=== PATIENT | female | born 1950 | race Caucasian/White ===

== ENCOUNTER 2023-03-29 08:36 | Emergency (ER) | payer OTHER ==
[~2023-03-29] VITALS: Ht 167.6 cm; Wt 91.0 kg
[~2023-03-29 08:36] MED LIST: ATEN50TA19 PO; ATOR20TA PO; CLOP75TA70 PO
[2023-03-29] MEDS ORDERED: EPINEPHrine HCL 0.5 ML NEB ONE (08:39)
[2023-03-29] MEDS ORDERED: DexAMETHasone SOD PHOS 10MG/1ML VIAL INJ ONE (08:39)
[2023-03-29] MEDS ORDERED: IPRATROPIUM BROM 0.5 MG/2.5ML INH SOL NEB ONE (08:45)
[2023-03-29] MEDS ORDERED: DexAMETHasone SOD PHOS 10MG/1ML VIAL INJ IV ONE (08:45)
[2023-03-29] MEDS ORDERED: ALBUTEROL SULF 2.5 MG/0.5ML(0.5%) NEB SOLN NEB ONE (08:45)
[2023-03-29] MEDS ORDERED: EPINEPHrine HCL 0.5 ML NEB NEB ONE (08:45)
[2023-03-29 09:00] LABS: Basophils # (auto) 0.1 10 ^3/uL (0-0.2); Eosinophils # (auto) 0.1 10 ^3/uL (0-0.8); Eosinophils % (auto) 0.4 % (0.0-7.0); Hematocrit 44.9 % (36.0-46.0); Hemoglobin 14.9 g/dL (12.2-16.2); Lymphocytes # (auto) 4.6 10 ^3/uL (0.4-5.4); Lymphocytes % (auto) 38.5 % (10.0-50.0); Mean Corpuscular Hemoglobin 30.4 pg (28.0-32.0); Mean Corpuscular Hgb Conc. 33.1 g/dL (32.0-36.0); Mean Corpuscular Volume 91.8 fL (80.0-100.0); Monocytes # (auto) 0.6 10 ^3/uL (0-1.3); Monocytes % (auto) 5.1 % (0.0-12.0); Neutrophils # (auto) 6.6 10 ^3/uL (1.6-8.6); Nucleated Red Blood Cells % 0.1 %; Red Blood Cells 4.89 10^6/uL (4.0-5.20); Red Cell Distribution Width 13.9 % (11.8-14.3); White Blood Cell 12.1 10^3/uL (4.4-10.8)
[2023-03-29 09:29] LABS: Base Excess -10.5 mmol/L (-2.0-2.0)
[2023-03-29 09:31] LABS: Base Excess -8.8 mmol/L (-2.0-2.0)
[2023-03-29 09:54] VITALS: PULSE 93; O2SAT 97
[2023-03-29 11:19] LABS: Chloride 103 mmol/L (98-107); Sodium 138 mmol/L (136-145)
[2023-03-29 11:22] LABS: Anion Gap 10 (5-15); Carbon Dioxide 25 mmol/L (20-30)
[2023-03-29 11:23] LABS: Calcium 8.8 mg/dL (8.5-10.1)
[2023-03-29 11:27] LABS: Glucose 222 mg/dL (74-106)
[2023-03-29 11:28] LABS: Alkaline Phosphatase 68 U/L (46-116)
[2023-03-29 11:29] LABS: Albumin 4.4 g/dL (3.2-4.8); Aspartate Aminotransferase 18 U/L (13-40)
[2023-03-29 11:30] LABS: Bilirubin, Total 0.8 mg/dL (0.2-1.0); Total Protein 6.4 g/dL (5.7-8.2)
[2023-03-29 11:54] LABS: Alanine Aminotransferase 18 U/L (7-40); BUN/Creatinine Ratio 9.3 (10.0-20.0); Blood Urea Nitrogen 8 mg/dL (9-23); Potassium 3.5 mmol/L (3.5-5.1)
[2023-03-29 13:53] VITALS: BP 100/52; PULSE 97; RESP 17; TEMP 97.8; O2SAT 99
== END 2023-03-29 14:30 ==
LOC: EDBD 08:36 → ER 08:36
DX: R06.02 Shortness of breath (principal); R07.89 Other chest pain; Z79.01 Long term (current) use of anticoagulants; Z79.899 Other long term (current) drug therapy; Z88.8 Allergy status to other drugs, medicaments and biological substances; Z91.041 Radiographic dye allergy status
CPT/HCPCS: 36415; 36600; 71045; 80053; 82805; 84484; 85025; 93005; 94660; 96374; 99285; J1100